=== PATIENT | female | born 1945 | race Hispanic/Latino ===

== ENCOUNTER 2020-10-16 18:08 | Inpatient (IN) | payer OTHER, MEDICARE ==
[~2020-10-16] VITALS: Ht 154.9 cm; Wt 64.0 kg
[2020-10-16 18:46] LABS: BASOPHILS % (AUTO) 0.4 % (0.0-5.0); EOSINOPHILS % (AUTO) 0.1 % (0.0-8.0); HEMATOCRIT 36.7 % (36-48); LYMPHOCYTES % (AUTO) 12.1 % (21.0-51.0); MEAN CORPUSCULAR HEMOGLOBIN 29.4 pg (27.0-33.0); MEAN CORPUSCULAR VOLUME 89.3 fL (79-99); MONOCYTES % (AUTO) 9.6 % (3.0-13.0); NUCLEATED RED BLOOD CELLS 0.2 % (0.0-0.19); PLATELET COUNT (AUTO) 383 K/uL (130-400); RED BLOOD CELL COUNT(AUTO) 4.11 MIL/uL (4.00-5.50); RED CELL DISTRIBUTION WIDTH 12.7 % (11.0-15.5); WHITE BLOOD COUNT (AUTO) 10.6 K/uL (4.8-10.8)
[2020-10-16 18:52] LABS: ABG BASE EXCESS 2.8 mmol/L (-2.0-3.0); ABG HCO3 25.2 mmol/L (21.0-28.0); ABG OXYGEN SATURATION 79.5 % (95.0-99.0); ABG PCO2 32 mmHg (32-45)
[2020-10-16 18:58] LABS: INR 1.1 (0.85-1.15); PROTHROMBIN TIME 11.9 SEC (9.6-11.6)
[2020-10-16 18:59] LABS: PARTIAL THROMBOPLASTIN TIME 31.3 SEC (26.3-35.5)
[2020-10-16 19:01] LABS: CARBON DIOXIDE 28 mmol/L (21-32); CHLORIDE 103 mmol/L (101-111); CREATININE 0.9 mg/dL (0.5-1.5); GLOMERULAR FILTR. RATE CALC 65 mL/min (>60); GLUCOSE,RANDOM 134 mg/dL (70-105); POTASSIUM 3.7 mmol/L (3.5-5.1); SODIUM SERUM 140 mmol/L (136-145); UREA NITROGEN, BLOOD 17 mg/dL (7-18)
[2020-10-16 19:11] LABS: ALANINE AMINOTRANSFERASE 66 U/L (12-78); ALBUMIN 2.6 g/dL (3.5-5.0); ASPARTATE AMINOTRANSFERASE 66 U/L (10-37); BILIRUBIN,TOTAL 0.7 mg/dL (0.2-1.0); CREATINE KINASE, TOTAL 46 U/L (21-232); MYOGLOBIN 26 ng/mL (10-92); TOTAL PROTEIN, SERUM 7.6 g/dL (6.0-8.3); TROPONIN I < 0.04 ng/mL (0.00-0.06)
[2020-10-16 19:27] LABS: B-TYPE NATRIURETIC PEPTIDE 89 pg/mL (0-100)
[2020-10-16] MEDS ORDERED: CEFTRIAXONE 1G VIAL ONE (19:36)
[2020-10-16] MEDS ORDERED: DEXAMETHASONE SOD PHOSPHATE 10MG/ML 1ML VIAL ONE (19:36)
[2020-10-16] MEDS ORDERED: ACETAMINOPHEN 500 MG TABLET ONE (19:37)
[2020-10-16] MEDS ORDERED: 0.9% NACL 500ML IV.SOLN 500 ML IV ONE (19:38)
[2020-10-16] MEDS ORDERED: DOXYCYCLINE HYCLATE 100 MG TABLET PO ONE (20:47)
[2020-10-16] MEDS ORDERED: ERGOCALCIFEROL (VITAMIN D2) 50,000 UNIT CAPSULE PO ONE (21:15)
[2020-10-16] MEDS: DEXAMETHASONE SOD PHOSPHATE 4 MG/ML 1ML VIAL IVP SCH (21:15)
[2020-10-16] MEDS ORDERED: LACTULOSE 20 GM/30 ML UDCUP PO PRN (21:15)
[2020-10-16] MEDS ORDERED: ONDANSETRON 4MG INJ IV PRN (21:15)
[2020-10-16] MEDS: FUROSEMIDE 40MG VIAL IVP SCH (21:15)
[2020-10-16] MEDS ORDERED: GUAIFENESIN-CODEINE 5 ML SYRUP PO PRN (21:15)
[2020-10-16] MEDS ORDERED: ACETAMINOPHEN 325 MG TAB PO PRN ×2 (21:15)
[2020-10-16] MEDS: CEFTRIAXONE 1G VIAL IVP SCH (21:15)
[2020-10-16] MEDS ORDERED: DOXYCYCLINE 100MG+NS 250ML IV SCH (21:15)
[2020-10-16] MEDS: ENOXAPARIN SODIUM 30 MG/0.3 ML SQ SCH (21:15)
[2020-10-16] MEDS: FAMOTIDINE 20MG VIAL IV SCH (22:00)
[2020-10-16] MEDS: DOXYCYCLINE 100MG+NS 250ML 250 ML IV SCH (22:00)
[2020-10-16] MEDS ORDERED: OSELTAMIVIR PHOSPHATE 75 MG CAP PO SCH (22:00)
[2020-10-16 22:57] LABS: APPEARANCE,URINE Clear (CLEAR); BILIRUBIN,URINE Negative (NEGATIVE); COLOR,URINE Yellow (YELLOW); GLUCOSE, URINE (UA) Negative (NEGATIVE); KETONES,URINE Negative (NEGATIVE); LEUKOCYTE ESTERASE ,URINE Moderate (NEGATIVE); NITRATE,URINE Positive (NEGATIVE); OCCULT BLOOD,URINE Moderate (NEGATIVE); PH,URINE 7.5 (5.0-8.0); PROTEIN,URINE POS 1+ mg/dL (NEGATIVE)
[2020-10-16 23:00] LABS: CREATINE KINASE, TOTAL 45 U/L (21-232); MYOGLOBIN 25 ng/mL (10-92); TROPONIN I < 0.04 ng/mL (0.00-0.06)
[2020-10-16 23:12] LABS: BACTERIA,URINE Few /HPF (None Seen); SQUAMOUS EPITHELIAL CELL,UR 0-2 /HPF (0-2)
[2020-10-17] VITALS (15 sets, daily range): BP systolic 122–161; BP diastolic 54–75
[2020-10-17] MEDS ORDERED: FUROSEMIDE 40MG VIAL ONE (00:30)
[2020-10-17] MEDS ORDERED: ERGOCALCIFEROL (VITAMIN D2) 50,000 UNIT CAPSULE ONE (00:30)
[2020-10-17] MEDS ORDERED: ENOXAPARIN SODIUM 40 MG/0.4 ML SYRINGE SQ ONE (00:31)
[2020-10-17] MEDS ORDERED: GUAIFENESIN-CODEINE 5 ML SYRUP ONE (00:31)
[2020-10-17 05:04] LABS: BASOPHILS % (AUTO) 0.4 % (0.0-5.0); LYMPHOCYTES % (AUTO) 10.2 % (21.0-51.0); MEAN CORPUSCULAR HEMOGLOBIN 29.5 pg (27.0-33.0); MEAN CORPUSCULAR HGB CONC 32.5 g/dL (32.0-36.0); MEAN CORPUSCULAR VOLUME 90.7 fL (79-99); MONOCYTES % (AUTO) 4.3 % (3.0-13.0); NEUTROPHILS % (AUTO) 80.4 % (40.0-77.0); PLATELET COUNT (AUTO) 376 K/uL (130-400); RED BLOOD CELL COUNT(AUTO) 3.97 MIL/uL (4.00-5.50); RED CELL DISTRIBUTION WIDTH 12.7 % (11.0-15.5); WHITE BLOOD COUNT (AUTO) 8.3 K/uL (4.8-10.8)
[2020-10-17 05:25] LABS: ALANINE AMINOTRANSFERASE 62 U/L (12-78); ALBUMIN 2.5 g/dL (3.5-5.0); ASPARTATE AMINOTRANSFERASE 57 U/L (10-37); BILIRUBIN,TOTAL 0.5 mg/dL (0.2-1.0); CARBON DIOXIDE 28 mmol/L (21-32); CHLORIDE 105 mmol/L (101-111); CREATINE KINASE, TOTAL 41 U/L (21-232); CREATININE 0.7 mg/dL (0.5-1.5); GLOMERULAR FILTR. RATE CALC 87 mL/min (>60); GLUCOSE,RANDOM 194 mg/dL (70-105); MYOGLOBIN 35 ng/mL (10-92); POTASSIUM 4.2 mmol/L (3.5-5.1); SODIUM SERUM 143 mmol/L (136-145); TOTAL PROTEIN, SERUM 6.4 g/dL (6.0-8.3); TROPONIN I < 0.04 ng/mL (0.00-0.06); UREA NITROGEN, BLOOD 17 mg/dL (7-18)
[2020-10-17] MEDS ORDERED: 0.9% NACL 250ML 0 ML IV ONE (07:04)
[2020-10-17] MEDS ORDERED: FUROSEMIDE 20MG VIAL IV SCH (08:30)
[2020-10-17] MEDS: FUROSEMIDE 40MG VIAL IVP SCH (09:20)
[2020-10-17] MEDS: CEFTRIAXONE 1G VIAL IVP SCH ×2 (09:20→21:17)
[2020-10-17] MEDS: ASCORBIC ACID 500 MG TAB PO SCH (09:20)
[2020-10-17] MEDS: ZINC SULFATE 220 CAPSULE PO SCH (09:20)
[2020-10-17] MEDS: ENOXAPARIN SODIUM 30 MG/0.3 ML SQ SCH ×2 (09:21→21:18)
[2020-10-17] MEDS: DOXYCYCLINE 100MG+NS 250ML 250 ML IV SCH ×2 (09:22→21:18)
[2020-10-17] MEDS ORDERED: PHARMACY COMMUNICATION MISC SCH ×2 (10:00→14:15)
[2020-10-17] MEDS ORDERED: VANCOMYCIN PROTOCOL PER PHARMACY IV SCH (13:15)
[2020-10-17 13:23] LABS: CREATINE KINASE, TOTAL 40 U/L (21-232); MYOGLOBIN 36 ng/mL (10-92); TROPONIN I < 0.04 ng/mL (0.00-0.06)
[2020-10-17] MEDS ORDERED: SIMV40TA59 PO (13:50)
[2020-10-17] MEDS ORDERED: CLON2TAB11 PO (13:50)
[2020-10-17] MEDS ORDERED: CETI10TA57 PO (13:50)
[2020-10-17] MEDS ORDERED: FISH1CAP27 PO (13:50)
[2020-10-17] MEDS ORDERED: MECL-160 PO (13:50)
[2020-10-17] MEDS ORDERED: MIRT-22 PO (13:50)
[2020-10-17] MEDS ORDERED: VANCOMYCIN 1G/250ML KIT 250 ML IV ONE (14:00)
[2020-10-17] MEDS ORDERED: COMPOUND IV REFRIGERATED 1 EACH IVSOLN MISC PRN (15:00)
[2020-10-17] MEDS ORDERED: REMDESIVIR (EUA) 520 200 MG in 0.9% NACL 250ML 250 ML IV ONE (15:00)
[2020-10-17] MEDS ORDERED: 0.9% NACL 250ML 250 ML IV ONE (20:28)
[2020-10-17] MEDS ORDERED: MIRTAZAPINE 15 MG TABLET PO SCH (21:00)
[2020-10-17] MEDS ORDERED: BARICITINIB (EUA) 2 MG TABLET PO SCH (21:00)
[2020-10-17] MEDS ORDERED: NON-FORMULARY MEDICATION 1 EACH (Simvastatin (Zocor) 80 MG) PO SCH (21:00)
[2020-10-17] MEDS: SIMVASTATIN 20 MG TABLET PO SCH (21:16)
[2020-10-17] MEDS: DEXAMETHASONE SOD PHOSPHATE 4 MG/ML 1ML VIAL IVP SCH (21:17)
[2020-10-17] MEDS: FAMOTIDINE 20MG VIAL IV SCH (21:17)
[2020-10-18] VITALS (26 sets, daily range): BP systolic 104–177; BP diastolic 50–89
[2020-10-18 04:37] LABS: BASOPHILS % (AUTO) 0.3 % (0.0-5.0); HEMATOCRIT 35.8 % (36-48); LYMPHOCYTES % (AUTO) 9.9 % (21.0-51.0); MEAN CORPUSCULAR HEMOGLOBIN 29.2 pg (27.0-33.0); MEAN CORPUSCULAR HGB CONC 31.8 g/dL (32.0-36.0); MEAN CORPUSCULAR VOLUME 91.6 fL (79-99); MONOCYTES % (AUTO) 5.7 % (3.0-13.0); NEUTROPHILS % (AUTO) 79.7 % (40.0-77.0); PLATELET COUNT (AUTO) 428 K/uL (130-400); RED BLOOD CELL COUNT(AUTO) 3.91 MIL/uL (4.00-5.50); RED CELL DISTRIBUTION WIDTH 12.7 % (11.0-15.5); WHITE BLOOD COUNT (AUTO) 11.8 K/uL (4.8-10.8)
[2020-10-18 04:51] LABS: ALBUMIN 2.5 g/dL (3.5-5.0); BILIRUBIN,TOTAL 0.4 mg/dL (0.2-1.0); CREATININE 0.7 mg/dL (0.5-1.5); POTASSIUM 3.9 mmol/L (3.5-5.1); TOTAL PROTEIN, SERUM 7.3 g/dL (6.0-8.3)
[2020-10-18 05:08] LABS: CRP QUANTITATIVE 191.4 mg/L (0.00-9.0)
[2020-10-18] MEDS ORDERED: VANCOMYCIN 500MG+NS 100ML 100 ML IV SCH (06:00)
[2020-10-18] MEDS: REMDESIVIR LABS MISC SCH (06:13)
[2020-10-18] MEDS: ASCORBIC ACID 500 MG TAB PO SCH (08:09)
[2020-10-18] MEDS: ZINC SULFATE 220 CAPSULE PO SCH (08:09)
[2020-10-18] MEDS: ENOXAPARIN SODIUM 30 MG/0.3 ML SQ SCH ×2 (08:11→20:42)
[2020-10-18] MEDS ORDERED: BARICITINIB (EUA) 2 MG TABLET PO SCH (09:00)
[2020-10-18] MEDS: DOXYCYCLINE 100MG+NS 250ML 250 ML IV SCH (09:22)
[2020-10-18] MEDS ORDERED: METOPROLOL TARTRATE 25 MG TAB PO PRN (12:15)
[2020-10-18] MEDS: REMDESIVIR (EUA) 520 100 MG in 0.9% NACL 250ML 250 ML IV SCH (15:28)
[2020-10-18] MEDS: ZOLPIDEM TARTRATE 5 MG TAB PO PRN (20:40)
[2020-10-18] MEDS: SIMVASTATIN 20 MG TABLET PO SCH (20:41)
[2020-10-18] MEDS: DOXYCYCLINE HYCLATE 100 MG TABLET PO SCH (20:41)
[2020-10-18] MEDS: DEXAMETHASONE SOD PHOSPHATE 4 MG/ML 1ML VIAL IVP SCH (20:42)
[2020-10-19] VITALS (25 sets, daily range): BP systolic 95–172; BP diastolic 41–89
[2020-10-19 03:40] LABS: ABG BASE EXCESS 5.1 mmol/L (-2.0-3.0); ABG HCO3 28.9 mmol/L (21.0-28.0); ABG OXYGEN SATURATION 95.1 % (95.0-99.0); ABG PCO2 40 mmHg (32-45)
[2020-10-19] MEDS: REMDESIVIR LABS MISC SCH (05:12)
[2020-10-19 06:03] LABS: BASOPHILS % (AUTO) 0.4 % (0.0-5.0); HEMATOCRIT 36.9 % (36-48); LYMPHOCYTES % (AUTO) 11.1 % (21.0-51.0); MEAN CORPUSCULAR HEMOGLOBIN 29.7 pg (27.0-33.0); MEAN CORPUSCULAR HGB CONC 33.3 g/dL (32.0-36.0); MEAN CORPUSCULAR VOLUME 89.1 fL (79-99); MONOCYTES % (AUTO) 5.8 % (3.0-13.0); NUCLEATED RED BLOOD CELLS 0.2 % (0.0-0.19); PLATELET COUNT (AUTO) 500 K/uL (130-400); RED BLOOD CELL COUNT(AUTO) 4.14 MIL/uL (4.00-5.50); RED CELL DISTRIBUTION WIDTH 12.6 % (11.0-15.5); WHITE BLOOD COUNT (AUTO) 11.2 K/uL (4.8-10.8)
[2020-10-19 06:30] LABS: ALBUMIN 2.5 g/dL (3.5-5.0); BILIRUBIN,TOTAL 0.4 mg/dL (0.2-1.0); CREATININE 0.7 mg/dL (0.5-1.5); POTASSIUM 3.7 mmol/L (3.5-5.1); TOTAL PROTEIN, SERUM 7.1 g/dL (6.0-8.3)
[2020-10-19] MEDS: AMLODIPINE 5 MG TAB PO SCH (08:31)
[2020-10-19] MEDS: ZINC SULFATE 220 CAPSULE PO SCH (08:31)
[2020-10-19] MEDS: ASCORBIC ACID 500 MG TAB PO SCH (08:31)
[2020-10-19] MEDS: DOXYCYCLINE HYCLATE 100 MG TABLET PO SCH ×2 (08:31→21:52)
[2020-10-19] MEDS: BARICITINIB (EUA) 2 MG TABLET PO SCH (08:31)
[2020-10-19] MEDS: FAMOTIDINE 20MG TAB PO SCH (08:31)
[2020-10-19] MEDS: ENOXAPARIN SODIUM 30 MG/0.3 ML SQ SCH ×2 (08:33→21:55)
[2020-10-19] MEDS ORDERED: METOPROLOL TARTRATE 25 MG TAB PO PRN (10:00)
[2020-10-19] MEDS ORDERED: CLONAZEPAM 2 MG TABLET PO ONE (14:05)
[2020-10-19] MEDS: REMDESIVIR (EUA) 520 100 MG in 0.9% NACL 250ML 250 ML IV SCH (14:39)
[2020-10-19 21:19] LABS: BASOPHILS % (AUTO) 0.5 % (0.0-5.0); EOSINOPHILS % (AUTO) 0.3 % (0.0-8.0); HEMATOCRIT 40.2 % (36-48); LYMPHOCYTES % (AUTO) 19.2 % (21.0-51.0); MEAN CORPUSCULAR HEMOGLOBIN 29.6 pg (27.0-33.0); MEAN CORPUSCULAR HGB CONC 33.1 g/dL (32.0-36.0); MEAN CORPUSCULAR VOLUME 89.3 fL (79-99); MONOCYTES % (AUTO) 8.7 % (3.0-13.0); NEUTROPHILS % (AUTO) 66.1 % (40.0-77.0); PLATELET COUNT (AUTO) 530 K/uL (130-400); RED CELL DISTRIBUTION WIDTH 12.6 % (11.0-15.5); WHITE BLOOD COUNT (AUTO) 13.9 K/uL (4.8-10.8)
[2020-10-19] MEDS: SIMVASTATIN 20 MG TABLET PO SCH (21:52)
[2020-10-19] MEDS: DEXAMETHASONE SOD PHOSPHATE 4 MG/ML 1ML VIAL IVP SCH (21:52)
[2020-10-20] VITALS (14 sets, daily range): BP systolic 101–151; BP diastolic 53–92
[2020-10-20 05:14] LABS: BASOPHILS % (AUTO) 0.7 % (0.0-5.0); HEMATOCRIT 38.7 % (36-48); LYMPHOCYTES % (AUTO) 12.2 % (21.0-51.0); MEAN CORPUSCULAR HEMOGLOBIN 29.4 pg (27.0-33.0); MEAN CORPUSCULAR HGB CONC 32.8 g/dL (32.0-36.0); MEAN CORPUSCULAR VOLUME 89.6 fL (79-99); NEUTROPHILS % (AUTO) 77.3 % (40.0-77.0); PLATELET COUNT (AUTO) 499 K/uL (130-400); RED BLOOD CELL COUNT(AUTO) 4.32 MIL/uL (4.00-5.50); RED CELL DISTRIBUTION WIDTH 12.5 % (11.0-15.5); WHITE BLOOD COUNT (AUTO) 11.7 K/uL (4.8-10.8)
[2020-10-20 05:54] LABS: CREATININE 0.8 mg/dL (0.5-1.5); CRP QUANTITATIVE 36.7 mg/L (0.00-9.0); POTASSIUM 3.9 mmol/L (3.5-5.1)
[2020-10-20] MEDS: REMDESIVIR LABS MISC SCH (06:00)
[2020-10-20] MEDS: ZINC SULFATE 220 CAPSULE PO SCH (08:54)
[2020-10-20] MEDS: DOXYCYCLINE HYCLATE 100 MG TABLET PO SCH ×2 (08:54→21:19)
[2020-10-20] MEDS: BARICITINIB (EUA) 2 MG TABLET PO SCH (08:54)
[2020-10-20] MEDS: ENOXAPARIN SODIUM 30 MG/0.3 ML SQ SCH ×2 (08:55→21:21)
[2020-10-20] MEDS: AMLODIPINE 5 MG TAB PO SCH (08:55)
[2020-10-20] MEDS: ASCORBIC ACID 500 MG TAB PO SCH (08:55)
[2020-10-20] MEDS: FAMOTIDINE 20MG TAB PO SCH (08:55)
[2020-10-20] MEDS ORDERED: CLONAZEPAM 2 MG TABLET PO SCH (09:00)
[2020-10-20] MEDS: REMDESIVIR (EUA) 520 100 MG in 0.9% NACL 250ML 250 ML IV SCH (16:49)
[2020-10-20] MEDS: SIMVASTATIN 20 MG TABLET PO SCH (21:19)
[2020-10-20] MEDS: DEXAMETHASONE SOD PHOSPHATE 4 MG/ML 1ML VIAL IVP SCH (21:21)
[2020-10-20] MEDS: ZOLPIDEM TARTRATE 5 MG TAB PO PRN (21:22)
[2020-10-20] MEDS: CLONAZEPAM 2 MG TABLET PO PRN (21:22)
[2020-10-21] VITALS (18 sets, daily range): BP systolic 115–147; BP diastolic 56–80
[2020-10-21] MEDS: REMDESIVIR LABS MISC SCH (06:00)
[2020-10-21 09:02] LABS: BASOPHILS % (AUTO) 0.5 % (0.0-5.0); HEMATOCRIT 39.2 % (36-48); MEAN CORPUSCULAR HEMOGLOBIN 29.9 pg (27.0-33.0); MEAN CORPUSCULAR HGB CONC 32.9 g/dL (32.0-36.0); MONOCYTES % (AUTO) 2.1 % (3.0-13.0); NEUTROPHILS % (AUTO) 82.3 % (40.0-77.0); PLATELET COUNT (AUTO) 535 K/uL (130-400); RED BLOOD CELL COUNT(AUTO) 4.31 MIL/uL (4.00-5.50); RED CELL DISTRIBUTION WIDTH 12.7 % (11.0-15.5); WHITE BLOOD COUNT (AUTO) 13.1 K/uL (4.8-10.8)
[2020-10-21 09:12] LABS: BILIRUBIN,TOTAL 0.4 mg/dL (0.2-1.0); CREATININE 0.9 mg/dL (0.5-1.5); POTASSIUM 4.1 mmol/L (3.5-5.1); TOTAL PROTEIN, SERUM 7.1 g/dL (6.0-8.3)
[2020-10-21] MEDS: BARICITINIB (EUA) 2 MG TABLET PO SCH (09:21)
[2020-10-21] MEDS: AMLODIPINE 5 MG TAB PO SCH (09:22)
[2020-10-21] MEDS: ENOXAPARIN SODIUM 30 MG/0.3 ML SQ SCH ×2 (09:22→20:21)
[2020-10-21] MEDS: ASCORBIC ACID 500 MG TAB PO SCH (09:22)
[2020-10-21] MEDS: ZINC SULFATE 220 CAPSULE PO SCH (09:22)
[2020-10-21] MEDS: FAMOTIDINE 20MG TAB PO SCH (09:22)
[2020-10-21] MEDS: DOXYCYCLINE HYCLATE 100 MG TABLET PO SCH ×2 (09:23→20:19)
[2020-10-21] MEDS: REMDESIVIR (EUA) 520 100 MG in 0.9% NACL 250ML 250 ML IV SCH (15:00)
[2020-10-21] MEDS ORDERED: PHARMACY COMMUNICATION MISC SCH (16:45)
[2020-10-21 17:03] LABS: CREATININE 0.7 mg/dL (0.5-1.5); CRP QUANTITATIVE 18.5 mg/L (0.00-9.0); MAGNESIUM 2.3 mg/dL (1.80-2.40); POTASSIUM 3.3 mmol/L (3.5-5.1)
[2020-10-21] MEDS: SIMVASTATIN 20 MG TABLET PO SCH (20:20)
[2020-10-21] MEDS: DEXAMETHASONE SOD PHOSPHATE 4 MG/ML 1ML VIAL IVP SCH (20:20)
[2020-10-21] MEDS: ZOLPIDEM TARTRATE 5 MG TAB PO PRN (20:56)
[2020-10-21] MEDS: CLONAZEPAM 2 MG TABLET PO PRN (20:56)
[2020-10-22] VITALS (19 sets, daily range): BP systolic 88–146; BP diastolic 45–76
[2020-10-22] MEDS: REMDESIVIR LABS MISC SCH (02:09)
[2020-10-22 05:53] LABS: HEMATOCRIT 40.1 % (36-48); LYMPHOCYTES % (AUTO) 8.3 % (21.0-51.0); MEAN CORPUSCULAR HEMOGLOBIN 29.6 pg (27.0-33.0); MEAN CORPUSCULAR HGB CONC 33.2 g/dL (32.0-36.0); MEAN CORPUSCULAR VOLUME 89.1 fL (79-99); MONOCYTES % (AUTO) 3.9 % (3.0-13.0); NEUTROPHILS % (AUTO) 83.6 % (40.0-77.0); PLATELET COUNT (AUTO) 535 K/uL (130-400); RED CELL DISTRIBUTION WIDTH 12.7 % (11.0-15.5); WHITE BLOOD COUNT (AUTO) 13.5 K/uL (4.8-10.8)
[2020-10-22 05:54] LABS: BASOPHILS % (AUTO) 0.3 % (0.0-5.0)
[2020-10-22 06:16] LABS: CREATININE 0.8 mg/dL (0.5-1.5); CRP QUANTITATIVE 16.1 mg/L (0.00-9.0)
[2020-10-22] MEDS: ZINC SULFATE 220 CAPSULE PO SCH (09:29)
[2020-10-22] MEDS: ASCORBIC ACID 500 MG TAB PO SCH (09:29)
[2020-10-22] MEDS: ENOXAPARIN SODIUM 30 MG/0.3 ML SQ SCH ×2 (09:29→20:16)
[2020-10-22] MEDS: DOXYCYCLINE HYCLATE 100 MG TABLET PO SCH (09:29)
[2020-10-22] MEDS: FAMOTIDINE 20MG TAB PO SCH (09:30)
[2020-10-22] MEDS: BARICITINIB (EUA) 2 MG TABLET PO SCH (09:33)
[2020-10-22] MEDS: SIMVASTATIN 20 MG TABLET PO SCH (20:13)
[2020-10-22] MEDS: DEXAMETHASONE SOD PHOSPHATE 4 MG/ML 1ML VIAL IVP SCH (20:16)
[2020-10-22] MEDS: CLONAZEPAM 2 MG TABLET PO PRN (20:16)
[2020-10-22] MEDS: ZOLPIDEM TARTRATE 5 MG TAB PO PRN (20:16)
[2020-10-23 05:43] LABS: CREATININE 0.8 mg/dL (0.5-1.5); CRP QUANTITATIVE 10.2 mg/L (0.00-9.0); POTASSIUM 4.4 mmol/L (3.5-5.1)
[2020-10-23 08:00] VITALS: BP 110/47
[2020-10-23] MEDS: FAMOTIDINE 20MG TAB PO SCH (08:40)
[2020-10-23] MEDS: BARICITINIB (EUA) 2 MG TABLET PO SCH (08:40)
[2020-10-23] MEDS: ASCORBIC ACID 500 MG TAB PO SCH (08:40)
[2020-10-23] MEDS: ZINC SULFATE 220 CAPSULE PO SCH (08:40)
[2020-10-23] MEDS: ENOXAPARIN SODIUM 30 MG/0.3 ML SQ SCH ×2 (08:42→20:45)
[2020-10-23] MEDS: AMLODIPINE 5 MG TAB PO SCH ×2 (09:00→09:34)
[2020-10-23 12:00] VITALS: BP 115/60
[2020-10-23 16:00] VITALS: BP 133/76
[2020-10-23] MEDS: SIMVASTATIN 20 MG TABLET PO SCH (20:43)
[2020-10-23] MEDS: ZOLPIDEM TARTRATE 5 MG TAB PO PRN (20:45)
[2020-10-23] MEDS: DEXAMETHASONE SOD PHOSPHATE 4 MG/ML 1ML VIAL IVP SCH (20:45)
[2020-10-24 04:10] VITALS: BP 106/48
[2020-10-24 04:22] LABS: CREATININE 0.9 mg/dL (0.5-1.5); POTASSIUM 4.1 mmol/L (3.5-5.1)
[2020-10-24 05:20] LABS: BASOPHILS % (AUTO) 0.2 % (0.0-5.0); HEMATOCRIT 40.2 % (36-48); LYMPHOCYTES % (AUTO) 5.4 % (21.0-51.0); MEAN CORPUSCULAR HEMOGLOBIN 29.3 pg (27.0-33.0); MEAN CORPUSCULAR HGB CONC 32.8 g/dL (32.0-36.0); MEAN CORPUSCULAR VOLUME 89.3 fL (79-99); MONOCYTES % (AUTO) 1.5 % (3.0-13.0); NEUTROPHILS % (AUTO) 91.4 % (40.0-77.0); PLATELET COUNT (AUTO) 477 K/uL (130-400); RED CELL DISTRIBUTION WIDTH 12.9 % (11.0-15.5); WHITE BLOOD COUNT (AUTO) 15.8 K/uL (4.8-10.8)
[2020-10-24 08:00] VITALS: BP 117/71
[2020-10-24] MEDS: ASCORBIC ACID 500 MG TAB PO SCH (08:17)
[2020-10-24] MEDS: ZINC SULFATE 220 CAPSULE PO SCH (08:17)
[2020-10-24] MEDS: FAMOTIDINE 20MG TAB PO SCH (08:17)
[2020-10-24] MEDS: ENOXAPARIN SODIUM 30 MG/0.3 ML SQ SCH ×2 (08:18→21:02)
[2020-10-24 11:42] VITALS: BP 128/55
[2020-10-24] MEDS: BARICITINIB (EUA) 2 MG TABLET PO SCH (11:44)
[2020-10-24] MEDS ORDERED: CLONAZEPAM 2 MG TABLET ONE (14:01)
[2020-10-24 16:36] VITALS: BP 129/63
[2020-10-24 19:00] VITALS: BP 122/51
[2020-10-24] MEDS: SIMVASTATIN 20 MG TABLET PO SCH (21:01)
[2020-10-24 23:00] VITALS: BP 99/47
[2020-10-25 03:00] VITALS: BP 105/61
[2020-10-25 05:56] LABS: BASOPHILS % (AUTO) 0.1 % (0.0-5.0); EOSINOPHILS % (AUTO) 0.3 % (0.0-8.0); HEMATOCRIT 39.7 % (36-48); LYMPHOCYTES % (AUTO) 17.2 % (21.0-51.0); MEAN CORPUSCULAR HEMOGLOBIN 29.6 pg (27.0-33.0); MEAN CORPUSCULAR HGB CONC 32.7 g/dL (32.0-36.0); MEAN CORPUSCULAR VOLUME 90.4 fL (79-99); NEUTROPHILS % (AUTO) 74.3 % (40.0-77.0); PLATELET COUNT (AUTO) 444 K/uL (130-400); RED BLOOD CELL COUNT(AUTO) 4.39 MIL/uL (4.00-5.50); RED CELL DISTRIBUTION WIDTH 13.2 % (11.0-15.5); WHITE BLOOD COUNT (AUTO) 14.1 K/uL (4.8-10.8)
[2020-10-25 06:20] LABS: ALBUMIN 3.1 g/dL (3.5-5.0); BILIRUBIN,TOTAL 0.6 mg/dL (0.2-1.0); CREATININE 0.9 mg/dL (0.5-1.5); CRP QUANTITATIVE 5.9 mg/L (0.00-9.0); POTASSIUM 3.8 mmol/L (3.5-5.1); TOTAL PROTEIN, SERUM 6.9 g/dL (6.0-8.3)
[2020-10-25] MEDS: ASCORBIC ACID 500 MG TAB PO SCH (07:50)
[2020-10-25] MEDS: AMLODIPINE 5 MG TAB PO SCH (07:51)
[2020-10-25] MEDS: FAMOTIDINE 20MG TAB PO SCH (07:51)
[2020-10-25] MEDS: ZINC SULFATE 220 CAPSULE PO SCH (07:51)
[2020-10-25] MEDS: ENOXAPARIN SODIUM 30 MG/0.3 ML SQ SCH (07:52)
[2020-10-25 08:00] VITALS: BP 127/63
[2020-10-25] MEDS ORDERED: DEXAMETHASONE 4 MG TAB PO SCH (09:00)
[2020-10-25] MEDS: BARICITINIB (EUA) 2 MG TABLET PO SCH (10:03)
[2020-10-25] MEDS ORDERED: PANT40TA55 PO (11:16)
[2020-10-25] MEDS ORDERED: APIX2.5T PO (11:16)
[2020-10-25] MEDS ORDERED: DEXA6TAB PO (11:16)
[2020-10-25 12:00] VITALS: BP 130/64
[2020-10-25] MEDS ORDERED: CLONAZEPAM 2 MG TABLET PO SCH (12:00)
[2020-10-25] MEDS ORDERED: CLONAZEPAM 2 MG TABLET PO PRN (12:00)
[2020-10-25 16:00] VITALS: BP 128/66
== END 2020-10-25 17:20 | disposition home or self-care (01) | DRG 871 ==
LOC: EDH 18:08 → EDHIP 21:10 → 4AH 10-17 06:00 → 2AH 10-17 12:21
PROVIDERS: ADMIT Internal Medicine; ATTEND Internal Medicine
PROC: XW13325 Transfusion of Convalescent Plasma (Nonautologous) into Peripheral Vein, Percutaneous Approach, New Technology Group 5 (ICD-10-PCS; principal; 2020-10-17)
PROC: XW033E5 Introduction of Remdesivir Anti-infective into Peripheral Vein, Percutaneous Approach, New Technology Group 5 (ICD-10-PCS; 2020-10-17)
PROC: 5A0935A Assistance with Respiratory Ventilation, Less than 24 Consecutive Hours, High Flow/Velocity Cannula (ICD-10-PCS; 2020-10-17)
PROC: 5A0935A Assistance with Respiratory Ventilation, Less than 24 Consecutive Hours, High Flow/Velocity Cannula (ICD-10-PCS; 2020-10-18)
PROC: 5A0935A Assistance with Respiratory Ventilation, Less than 24 Consecutive Hours, High Flow/Velocity Cannula (ICD-10-PCS; 2020-10-19)
PROC: 5A0935A Assistance with Respiratory Ventilation, Less than 24 Consecutive Hours, High Flow/Velocity Cannula (ICD-10-PCS; 2020-10-20)
PROC: 5A0935A Assistance with Respiratory Ventilation, Less than 24 Consecutive Hours, High Flow/Velocity Cannula (ICD-10-PCS; 2020-10-21)
PROC: 5A0935A Assistance with Respiratory Ventilation, Less than 24 Consecutive Hours, High Flow/Velocity Cannula (ICD-10-PCS; 2020-10-22)
DX: A41.50 Gram-negative sepsis, unspecified (principal); U07.1 COVID-19; J12.82 Pneumonia due to coronavirus disease 2019; J80 Acute respiratory distress syndrome; J12.81 Pneumonia due to SARS-associated coronavirus; N39.0 Urinary tract infection, site not specified; E44.0 Moderate protein-calorie malnutrition; D68.59 Other primary thrombophilia; F41.1 Generalized anxiety disorder; Z68.26 Body mass index [BMI] 26.0-26.9, adult; I10 Essential (primary) hypertension; F32.9 Major depressive disorder, single episode, unspecified; F41.9 Anxiety disorder, unspecified; R53.81 Other malaise
CPT/HCPCS: 36415; 36430; 36600; 71045; 71275; 76770; 80048; 80053; 81001; 82550; 82728; 82803; 82948; 83605; 83615; 83735; 83874; 83880; 84145; 84484; 85025; 85378; 85610; 85651; 85730; 86140; 86900; 86901; 86927; 87040; 87088; 87426; 87804; 93005; 93306; 93970; 94760; 99291; G0378; J0696; J1100; J1650; J1940; J3370; J3490; J7040; J7050; J8540; U0003